=== PATIENT | male | born 1965 | race Caucasian/White ===

== ENCOUNTER 2020-03-13 09:26 | Emergency (ER) | payer MEDICARE ==
[~2020-03-13 09:26] MED LIST: ALLER-TEC10 MG PO; ATORVASTATIN CA10 MG PO; BRILINTA90 MG PO; COLACE100 M1 PO; COZAAR50 MG PO; FLEXERIL5 MG PO; IMDUR 30MG TABL30 MG PO; INVOKANA300 MG PO; KEPPRA500 MG PO; NEURONTIN300 MG PO; POTASSIUM CHLO20 ME1 PO; PRILOSEC20 MG PO; SYNTHROID112 MCG PO; VIBRAMYCIN100 MG PO
[2020-03-13 11:04] LABS: BASOPHIL 0.7 % (0-2); EOSINOPHIL 0.7 % (0-5); HCT 35.4 % (42.0-52.0); HGB 11.5 g/dl (13.2-18.0); MCH 25.2 pg (25.0-31.0); MCHC 32.5 g/dL (32.0-36.0); MCV 77.6 fL (78.0-100.0); MONOCYTE 17.4 % (0-12); MPV 11.9 fL (6.0-9.5); NEUTROPHIL 51.8 % (41-80); NRBC 0; RBC 4.56 M/uL (4.70-6.00); RDW 14.1 % (11.5-14.0); WBC 2.9 K/uL (4.0-10.5)
[2020-03-13 11:38] LABS: LYMPHOCYTE 28.7 % (15-48)
[2020-03-13 11:42] LABS: PLT 61 K/uL (150-400)
[2020-03-13 11:44] LABS: INR 1.15 (0.9-1.2)
[2020-03-13 11:45] LABS: PTT 30.3 SECONDS (22.2-34.7)
[2020-03-13 11:50] LABS: ALBUMIN 3.1 g/dL (3.4-5.0); BILIRUBIN - TOTAL 0.5 mg/dL (0.2-1.0); BUN/CREAT RATIO (CALC) 17.1 RATIO; C-REACTIVE PROTEIN 3.8 mg/dL (<=0.90); CREATININE 0.7 mg/dL (0.67-1.17); GLOBULIN (CALCULATION) 4.1 g/dL; MAGNESIUM 1.6 mg/dL (1.8-2.4); PHOSPHORUS 2.3 mg/dL (2.6-4.7); POTASSIUM 3.4 mmol/L (3.5-5.1); TOTAL PROTEIN 7.2 g/dL (6.4-8.2)
[2020-03-13 12:34] LABS: LACTIC ACID 0.9 mmol/L (0.4-1.9)
[2020-03-13] MEDS ORDERED: ZOFRAN4 M1 PO (14:20)
[2020-03-13 15:15] LABS: BILIRUBIN NEGATIVE (NEGATIVE); BLOOD NEGATIVE Ery/uL (NEGATIVE); CLARITY CLEAR (CLEAR); COLOR YELLOW (YELLOW); GLUCOSE (U) NORMAL (NORMAL); LEUKOCYTES NEGATIVE Leu/uL (NEGATIVE); NITRITE NEGATIVE (NEGATIVE); PROTEIN TRACE (LOW) mg/dL (NEGATIVE); UROBILINOGEN 0.2 mg/dL (0.2-1.0)
[2020-03-13 15:27] LABS: URINARY WBC RARE
[2020-03-13 15:28] LABS: BACTERIA TRACE
== END 2020-03-13 14:58 | disposition home or self-care (01) ==
LOC: FER 09:26
PROVIDERS: Emergency Medicine
DX: E11.65 Type 2 diabetes mellitus with hyperglycemia (principal); B34.9 Viral infection, unspecified; D69.6 Thrombocytopenia, unspecified; I25.2 Old myocardial infarction; Z95.5 Presence of coronary angioplasty implant and graft; Z87.891 Personal history of nicotine dependence; Z91.018 Allergy to other foods; Z86.16 Personal history of COVID-19
CPT/HCPCS: 36415; 36600; 71260; 80053; 81001; 82728; 82803; 83605; 83615; 83690; 83735; 83880; 84100; 84145; 84443; 85025; 85610; 85730; 86140; 93005; J7030; Q9967

== ENCOUNTER 2021-06-21 19:15 | Emergency (ER) | payer MEDICARE ==
[~2021-06-21 19:15] MED LIST changes: +ZOFRAN4 M1 PO
== END 2021-06-21 20:16 | disposition home or self-care (01) ==
LOC: FER 19:15
DX: S63.502A Unspecified sprain of left wrist, initial encounter (principal); I10 Essential (primary) hypertension; E11.9 Type 2 diabetes mellitus without complications; Z28.310 Unvaccinated for COVID-19; Z79.4 Long term (current) use of insulin; Z79.84 Long term (current) use of oral hypoglycemic drugs; Z87.891 Personal history of nicotine dependence; Z88.5 Allergy status to narcotic agent; Z79.899 Other long term (current) drug therapy; W19.XXXA Unspecified fall, initial encounter; Y92.009 Unspecified place in unspecified non-institutional (private) residence as the place of occurrence of the external cause
CPT/HCPCS: 73110